=== PATIENT | female | born 1995 | race Caucasian/White ===

== ENCOUNTER 2017-01-17 11:35 | Emergency (ER) | payer OTHER ==
--- NOTE | 2017-01-17 12:36 | DIAGNOSTIC IMAGING REPORT ---
PROCEDURE: CT HEAD WITHOUT CONTRAST INDICATION: HEAD INJURY, CONCUSSION SYMPTOMS TECHNIQUE: Axial CT images were acquired through the head. Coronal and sagittal reformations were created. COMPARISON: None. FINDINGS: No intracranial hemorrhage or extraaxial fluid collections. Ventricles are normal in size, shape and position. There is no mass, mass effect or midline shift. The lo-white matter differentiation is normal. There is no edema. The calvarium is intact. The paranasal sinuses and mastoid air cells are normally aerated. The extracranial soft tissues and orbits are normal. IMPRESSION: 1. No CT evidence of acute intracranial process. All CT scans at this facility use dose modulation, iterative reconstruction, and/or weight-based dosing when appropriate to reduce radiation dose to as low as reasonably achievable.
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
--- NOTE | 2017-01-17 13:11 | ED ORDER SUMMARY ---
..... Patient: LEANDRO ALMANZAR OrderSheet [facility] VisitID: [id number] [address] [place] [address] 21y, F Registration Date/Time: 01/17/2017 ORDER SHEET Weight: 72.5 kg Allergies: None GENERAL ORDERS: CT Head wo Cont Urgent (12:02 01/17/2017 Barbara Guillen) [facility] [facility] (12:15 [place]) MEDICATION ORDERS: IV FLUIDS: ORDER SHEET NOTES: [Electronically signed by Yanique Peguero R.N. (13:34 01/17/2017)] [Electronically signed by Alexander Oswald Dr. (07:12 01/23/2017)] [Electronically locked/signed by Yanique Peguero R.N. (13:34 01/17/2017)]
--- NOTE | 2017-01-17 13:11 | ED ORDER SUMMARY ---
..... Patient: LEANDRO ALMANZAR OrderSheet [facility] VisitID: [id number] [address] [place] [address] 21y, F Registration Date/Time: 01/17/2017 ORDER SHEET Weight: 72.5 kg Allergies: None GENERAL ORDERS: CT Head wo Cont Urgent (12:02 01/17/2017 Barbara Guillen[facility] (12:15 [place]) MEDICATION ORDERS: IV FLUIDS: ORDER SHEET NOTES: [Electronically signed by Yanique Peguero R.N. (13:34 01/17/2017)] [Electronically signed by Alexander Oswald Dr. (07:12 01/23/2017)] [Electronically locked/signed by Yanique Peguero R.N. (13:34 01/17/2017)]
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
--- NOTE | 2017-01-23 07:13 | ED MAR SUMMARY ---
..... Medication Administration Record [facility] [address], [place] [id number] Patient: LEANDRO ALMANZAR Genoveva Visit ID: [id number] 21y, F Weight: 72.5 kg Height/Length: 68 in BMI: 24.3 ALLERGIES: None
--- NOTE | 2017-01-23 07:13 | ED MAR SUMMARY ---
..... Medication Administration Record [facility] [address] [place], [place] [id number] Patient: LEANDRO ALMANZAR Genoveva Visit ID: [id number] 21y, F Weight: 72.5 kg Height/Length: 68 in BMI: 24.3 ALLERGIES: None
--- NOTE | 2017-01-23 07:13 | ED MED RECONCILIATION SUMMARY ---
Patient: LEANDRO ALMANZAR Medication Reconciliation Report [facility] VisitID: [id number] [address] [place] [address] 21y, F Registration Date/Time: 01/17/2017 Weight: 72.5 kg Height/Length: 68 in. BMI: 24.3 ALLERGIES: None The patient's Home Medications are listed below: CONTINUE TAKING THE FOLLOWING MEDICATIONS: Zoloft Oral The source(s) of the original Home Medication information: Not obtained. The following Medications were given to the patient in the Emergency Department: None. The following Medications were prescribed to the patient: Acetaminophen (available over the counter): take according to label instructions. -- Alexander Oswald Dr. Motrin (available over the counter): take according to label instructions. -- Alexander Oswald Dr.
--- NOTE | 2017-01-23 07:13 | ED MED RECONCILIATION SUMMARY ---
Patient: LEANDRO ALMANZAR Medication Reconciliation Report [facility] VisitID: [id number] [address] [place] [address] 21y, F Registration Date/Time: 01/17/2017 Weight: 72.5 kg Height/Length: 68 in. BMI: 24.3 ALLERGIES: None The patient's Home Medications are listed below: CONTINUE TAKING THE FOLLOWING MEDICATIONS: Zoloft Oral The source(s) of the original Home Medication information: Not obtained. The following Medications were given to the patient in the Emergency Department: None. The following Medications were prescribed to the patient: Acetaminophen (available over the counter): take according to label instructions. -- Alexander Oswald Dr. Motrin (available over the counter): take according to label instructions. -- Alexander Oswald Dr.
--- NOTE | 2017-01-23 07:13 | ED DISCHARGE INSTRUCTIONS ---
Patient: LEANDRO ALMANZAR General Instructions [facility] VisitID: [id number] [place] [address] 21y, F Registration Date/Time: 01/17/2017 01/17/2017 12:01 BP: 122/67. HR: 71. RR: 18. O2 saturation: 95%. Temp: 98.2 F. Pain level now: 0/10. Blood pressure normal. Oxygen saturation normal. Concussion. Unknown whether a loss of consciousness occurred. Confusion. (acute subsequent encounter). INSTRUCTIONS (Talk to your doctor about referral to neurology). Warnings: GENERAL WARNINGS: Return or contact your physician immediately if your condition worsens or changes unexpectedly, if not improving as expected, or if other problems arise. Specifically return if pain, vomiting, bleeding, breathing difficulty or fever. Your Current Medications: CONTINUE TAKING THE FOLLOWING MEDICATIONS: Zoloft Oral. OTC Medications: Acetaminophen (available over the counter): take according to label instructions. Motrin (available over the counter): take according to label instructions. Follow-up: Return to the emergency department as needed. Follow up with your doctor in three days. Reason for referral: recheck today's concerns. Screening today revealed the patient's blood pressure to be in the normal range. The patient should follow up with a primary care provider for blood pressure management. Understanding of the discharge instructions verbalized by patient and parent. ADDITIONAL INFORMATION Concussion (No Wake-Up) A concussion happens when you hit your head with enough force to shake up the brain. This may cause you to lose consciousness be "knocked out" - but not always. Depending on how hard you hit your head, it will take from a few hours up to a few days to get better. Sometimes symptoms may last a few months or longer. This is called post-concussion syndrome. At first, you may have a headache, nausea, vomiting, or dizziness. You may also have problems concentrating or remembering things. This is normal. Symptoms should get better as the hours and days go by. Symptoms that get worse could be a sign of a more serious injury. This might be a bruise or bleeding in the brain. Thats why its important to watch for the warning signs listed below. Home care Follow these tips to help care for yourself at home: During the next day (24 hours) someone must stay with you to check for the signs below. If your face or scalp swells, apply an ice pack for 20 minutes every 1 to 2 hours. Do this until the swelling starts to go down. You can make an ice pack by putting ice cubes in a plastic bag and wrapping the bag in a towel. for 20 minutes every 1-2 hours until the swelling starts to go down. You may use acetaminophen to control pain, unless another pain medicine was prescribed. If you have chronic liver or kidney disease, talk with your doctor before using these medicines. Also talk with your doctor if you ever had a stomach ulcer or GI bleeding. For the next 24 hours: Dont drink alcohol or take sedatives or medicines that make you sleepy. Dont drive or operate machinery. Avoid doing anything strenuous. Dont lift or strain. Dont return to sports or any activity that could cause you to hit your head until all symptoms are gone and you have been cleared by your doctor. A second head injury before fully recovering from the first one can lead to serious brain injury. Follow-up care Follow up with your doctor in 1 week, or as directed. Note: A radiologist will review any X-rays or CT scans that were taken. You will be told of any new findings that may affect your care. When to seek medical care Get prompt medical attention if any of these occur: Repeated vomiting Headache or dizziness that is severe or gets worse Unusual drowsiness, or unable to wake up as usual Confusion or change in behavior or speech, or memory loss Blurred vision Convulsion (seizure) Swelling on the scalp or face that gets worse Redness, warmth, or pus from the swollen area Fluid draining from or bleeding from the nose or ears You have been given the following additional information: Concussion, No Wake-Up (Electronically signed by Alexander Oswald Dr. 01/23/2017 7:12)
== END 2017-01-17 13:24 | disposition home or self-care (01) ==
LOC: ED SRH 11:35
DX: S06.0X9A Concussion with loss of consciousness of unspecified duration, initial encounter (principal); R41.0 Disorientation, unspecified; V49.9XXA Car occupant (driver) (passenger) injured in unspecified traffic accident, initial encounter